=== PATIENT | female | born 1955 | race Caucasian/White ===

== ENCOUNTER 2019-09-12 09:30 | Outpatient (RCR) | payer MEDICARE, BC | END 2019-10-11 15:58 | LOC: OPPGERO 09:30 | DX: F33.2 Major depressive disorder, recurrent severe without psychotic features (principal); Z59.8 Other problems related to housing and economic circumstances; Z62.819 Personal history of unspecified abuse in childhood; Z72.89 Other problems related to lifestyle ==

== ENCOUNTER 2019-10-12 08:23 | Outpatient (RCR) | payer MEDICARE, BC | END 2019-11-09 15:04 | LOC: OPPGERO 08:23 | DX: F33.2 Major depressive disorder, recurrent severe without psychotic features (principal); Z62.810 Personal history of physical and sexual abuse in childhood; Z63.0 Problems in relationship with spouse or partner; Z86.59 Personal history of other mental and behavioral disorders ==